=== PATIENT | female | born 1980 | race Caucasian/White ===

== ENCOUNTER 2022-09-07 19:29 | Emergency (ER) | payer MEDICAID ==
[~2022-09-07] VITALS: Ht 157.5 cm; Wt 61.4 kg
[~2022-09-07 19:29] MED LIST: NORCO
[2022-09-07 20:25] LABS: BASOPHILS # (AUTO) 0.1 X10'3 (0-0.2); BASOPHILS % (AUTO) 0.9 % (0-1); EOSINOPHILS # (AUTO) 0.2 X10'3 (0-0.9); EOSINOPHILS % (AUTO) 2.2 % (0-6); HEMATOCRIT 41.5 % (35.0-45.0); HEMOGLOBIN 14.3 g/dl (12.0-16.0); LYMPHOCYTES # (AUTO) 3.1 X10'3 (1.1-4.8); LYMPHOCYTES % (AUTO) 28.4 % (21-51); MEAN CORPUSCULAR HEMOGLOBIN 31.1 PG (27.0-31.0); MEAN CORPUSCULAR HGB CONC 34.4 g/dL (33.0-36.5); MEAN CORPUSCULAR VOLUME 90.3 FL (78-98); MEAN PLATELET VOLUME 6.5 FL (7.4-10.4); MONOCYTES # (AUTO) 0.7 X10'3 (0-0.9); MONOCYTES % (AUTO) 6.4 % (2-12); NEUTROPHILS # (AUTO) 6.8 X10'3 (1.8-7.7); NEUTROPHILS % (AUTO) 62.1 % (42-75); PLATELET COUNT 451 X10'3 (140-440); RED CELL DISTRIBUTION WIDTH 13.3 % (11.5-14.5); WHITE BLOOD COUNT 10.9 X10'3 (4.5-11.0)
[2022-09-07 20:36] LABS: ALANINE AMINOTRANSFERASE 18 U/L (12-78); ALBUMIN 4.2 G/DL (3.4-5.0); ALBUMIN/GLOBULIN RATIO 1.3 (1.1-1.5); ALKALINE PHOSPHATASE 77 IU/L (46-116); ANION GAP 5 (8-16); ASPARTATE AMINO TRANSFERASE 21 U/L (10-37); BILIRUBIN,TOTAL 0.3 MG/DL (0.1-1.0); BLOOD UREA NITROGEN 12 MG/DL (7-18); CALCIUM 9.1 MG/DL (8.5-10.1); CHLORIDE 102 MMOL/L (99-107); CREATININE 0.92 MG/DL (0.40-0.90); GLUCOSE 129 MG/DL (70-104); LIPASE 116 U/L (73-393); POTASSIUM 3.5 MMOL/L (3.5-5.1); SODIUM 140 MMOL/L (135-145); TOTAL CARBON DIOXIDE 33.1 MMOL/L (24-32); TOTAL PROTEIN 7.5 G/DL (6.4-8.2); eGFR 67 ML/MIN
[2022-09-07 20:50] VITALS: BP 106/64
== END 2022-09-08 03:03 | disposition left against medical advice (07) ==
LOC: ER 19:30
DX: K56.609 Unspecified intestinal obstruction, unspecified as to partial versus complete obstruction (principal); Z53.21 Procedure and treatment not carried out due to patient leaving prior to being seen by health care provider
CPT/HCPCS: 36415; 80053; 83690; 85025; 99281

== ENCOUNTER 2022-11-27 17:39 | Emergency (ER) | payer MEDICAID ==
[~2022-11-27] VITALS: Ht 157.5 cm; Wt 65.9 kg
[2022-11-27 18:02] LABS: BASOPHILS % (AUTO) 0.4 % (0-1); EOSINOPHILS # (AUTO) 0.1 X10'3 (0-0.9); EOSINOPHILS % (AUTO) 0.5 % (0-6); HEMATOCRIT 35.1 % (35.0-45.0); HEMOGLOBIN 11.9 g/dl (12.0-16.0); LYMPHOCYTES # (AUTO) 1.2 X10'3 (1.1-4.8); LYMPHOCYTES % (AUTO) 11.1 % (21-51); MEAN CORPUSCULAR HGB CONC 34.1 g/dL (33.0-36.5); MEAN CORPUSCULAR VOLUME 91.1 FL (78-98); MEAN PLATELET VOLUME 6.7 FL (7.4-10.4); MONOCYTES # (AUTO) 0.8 X10'3 (0-0.9); MONOCYTES % (AUTO) 7.7 % (2-12); NEUTROPHILS # (AUTO) 8.6 X10'3 (1.8-7.7); NEUTROPHILS % (AUTO) 80.3 % (42-75); PLATELET COUNT 378 X10'3 (140-440); RED BLOOD COUNT 3.85 X10'6 (4.20-5.60); RED CELL DISTRIBUTION WIDTH 13.3 % (11.5-14.5); WHITE BLOOD COUNT 10.7 X10'3 (4.5-11.0)
[2022-11-27 18:23] LABS: ALANINE AMINOTRANSFERASE 18 U/L (12-78); ALBUMIN 3.8 G/DL (3.4-5.0); ALBUMIN/GLOBULIN RATIO 1.3 (1.1-1.5); ALKALINE PHOSPHATASE 71 IU/L (46-116); ANION GAP 8 (8-16); ASPARTATE AMINO TRANSFERASE 18 U/L (10-37); BILIRUBIN,TOTAL 0.2 MG/DL (0.1-1.0); BLOOD UREA NITROGEN 12 MG/DL (7-18); BUN/CREATININE RATIO 16.2 (10.0-20.0); CALCIUM 8.9 MG/DL (8.5-10.1); CHLORIDE 103 MMOL/L (99-107); CREATININE 0.74 MG/DL (0.40-0.90); GLUCOSE 87 MG/DL (70-104); POTASSIUM 3.4 MMOL/L (3.5-5.1); SODIUM 138 MMOL/L (135-145); TOTAL CARBON DIOXIDE 26.8 MMOL/L (24-32); TOTAL PROTEIN 6.8 G/DL (6.4-8.2); eGFR 86 ML/MIN
[2022-11-27 19:21] VITALS: BP 104/67
== END 2022-11-27 19:22 | disposition home or self-care (01) ==
LOC: ER 17:39
DX: R07.89 Other chest pain (principal); F41.1 Generalized anxiety disorder; Z90.49 Acquired absence of other specified parts of digestive tract; Z72.89 Other problems related to lifestyle
CPT/HCPCS: 36415; 71045; 80053; 83735; 83880; 84484; 85025; 93005; 99285

== ENCOUNTER 2024-03-09 16:36 | Emergency (ER) | payer MEDICAID ==
[~2024-03-09] VITALS: Ht 160 cm; Wt 54.5 kg
[2024-03-09 17:14] LABS: BASOPHILS # (AUTO) 0.1 X10'3 (0-0.2); EOSINOPHILS # (AUTO) 0.1 X10'3 (0-0.9); EOSINOPHILS % (AUTO) 0.7 % (0-6); HEMATOCRIT 42.9 % (35.0-45.0); HEMOGLOBIN 14.3 g/dl (12.0-16.0); LYMPHOCYTES # (AUTO) 1.9 X10'3 (1.1-4.8); LYMPHOCYTES % (AUTO) 19.4 % (21-51); MEAN CORPUSCULAR HEMOGLOBIN 30.4 PG (27.0-31.0); MEAN CORPUSCULAR HGB CONC 33.2 g/dL (33.0-36.5); MEAN CORPUSCULAR VOLUME 91.7 FL (78-98); MEAN PLATELET VOLUME 6.7 FL (7.4-10.4); MONOCYTES # (AUTO) 0.4 X10'3 (0-0.9); MONOCYTES % (AUTO) 3.5 % (2-12); NEUTROPHILS # (AUTO) 7.6 X10'3 (1.8-7.7); NEUTROPHILS % (AUTO) 75.4 % (42-75); PLATELET COUNT 477 X10'3 (140-440); RED BLOOD COUNT 4.68 X10'6 (4.20-5.60); RED CELL DISTRIBUTION WIDTH 13.3 % (11.5-14.5)
[2024-03-09] MEDS: LORazepam 2 mg/ml vial IV ONE (17:24)
[2024-03-09 17:38] LABS: ALANINE AMINOTRANSFERASE 25 U/L (12-78); ALBUMIN 4.3 G/DL (3.4-5.0); ALBUMIN/GLOBULIN RATIO 1.2 (1.1-1.5); ALKALINE PHOSPHATASE 77 IU/L (46-116); ANION GAP 15 (8-16); ASPARTATE AMINO TRANSFERASE 21 U/L (10-37); BILIRUBIN,DIRECT 0.1 MG/DL (0-0.3); BILIRUBIN,TOTAL 0.4 MG/DL (0.1-1.0); BLOOD UREA NITROGEN 10 MG/DL (7-18); BUN/CREATININE RATIO 13.2 (10.0-20.0); CALCIUM 9.3 MG/DL (8.5-10.1); CHLORIDE 112 MMOL/L (99-107); CREATININE 0.76 MG/DL (0.40-0.90); ETHANOL 209 MG/DL (<10); GLUCOSE 108 MG/DL (70-104); POTASSIUM 3.7 MMOL/L (3.5-5.1); SODIUM 149 MMOL/L (135-145); TOTAL PROTEIN 7.8 G/DL (6.4-8.2); eCRCL 79 ML/MIN; eGFR 83 ML/MIN
[2024-03-09] MEDS: ringers solution, lacted 1,000 ML IV ONE (19:18)
[2024-03-09 22:42] LABS: BILIRUBIN,URINE NEGATIVE (Neg); CLARITY,URINE SLIGHTLY CLOUDY (Clear); COLOR,URINE YELLOW (Yellow); GLUCOSE, URINE NEGATIVE (Neg); KETONES,URINE NEGATIVE (Neg); LEUKOCYTE ESTERASE ,URINE NEGATIVE (Neg); NITRITES, URINE NEGATIVE (Neg); OCCULT BLOOD,URINE TRACE-INTACT (Neg); PROTEIN,URINE NEGATIVE (Neg); UROBILINOGEN,URINE 0.2 E.U/dL (0.2-1.0)
[2024-03-09 22:46] LABS: UA COLLECTION TYPE CLN CATCH MIDSTREAM
[2024-03-09 22:48] LABS: BACTERIA,URINE FEW /HPF (Neg); RBC,URINE 0-2 /HPF (0-2); WBC,URINE 0-4 /HPF (0-4)
[2024-03-09 22:49] LABS: MUCUS STRANDS FEW /LPF (Neg); SQUAMOUS EPITHELIAL CELL,UR FEW /LPF (FEW)
[2024-03-09 22:51] LABS: URINE AMPHETAMINE SCREEN POSITIVE (Neg); URINE BARBITUATE SCREEN NEGATIVE (Neg); URINE BENZODIAZEPINES SCREEN NEGATIVE (Neg); URINE CANNABINOID SCREEN NEGATIVE (Neg); URINE COCAINE SCREEN NEGATIVE (Neg); URINE METHADONE SCREEN NEGATIVE (Neg); URINE OPIATE SCREEN NEGATIVE (Neg); URINE PHENCYCLIDINE SCREEN NEGATIVE (Neg)
[2024-03-09] MEDS: ondansetron/PF 4mg/2ml inj IV ONE (23:08)
[2024-03-09] MEDS: morphine 4 MG/ML inj SYRINge IV ONE (23:09)
[2024-03-09 23:39] LABS: URINE HCG NEGATIVE (NEG)
[2024-03-10 00:36] LABS: HCG SERUM QL NEGATIVE
[2024-03-10 05:44] VITALS: BP 128/87; PULSE 73; RESP 18; TEMP 98.1; O2SAT 98
== END 2024-03-10 05:49 | disposition home or self-care (01) ==
LOC: ER 16:37 → EEVIPCON 16:37 → ER 03-10 05:49
DX: R41.82 Altered mental status, unspecified (principal); F10.129 Alcohol abuse with intoxication, unspecified; Y90.9 Presence of alcohol in blood, level not specified
CPT/HCPCS: 36415; 70450; 71045; 74176; 80048; 80076; 80305; 80320; 81001; 81025; 84703; 85025; 96361; 96374; 96375; 99285; J2060; J2270; J2405; J7120; C1758

== ENCOUNTER 2024-04-17 10:54 | Emergency (ER) | payer MEDICAID ==
[~2024-04-17] VITALS: Ht 157.5 cm; Wt 61.4 kg
[2024-04-17 11:05] VITALS: BP 123/77; PULSE 76; RESP 18; TEMP 97.2; O2SAT 100
[2024-04-17 11:45] LABS: BILIRUBIN,URINE NEGATIVE (Neg); CLARITY,URINE CLEAR (Clear); COLOR,URINE YELLOW (Yellow); GLUCOSE, URINE NEGATIVE (Neg); KETONES,URINE NEGATIVE (Neg); LEUKOCYTE ESTERASE ,URINE NEGATIVE (Neg); NITRITES, URINE NEGATIVE (Neg); OCCULT BLOOD,URINE TRACE-INTACT (Neg); PROTEIN,URINE NEGATIVE (Neg); UROBILINOGEN,URINE 0.2 E.U/dL (0.2-1.0)
[2024-04-17 11:58] LABS: UA COLLECTION TYPE CLN CATCH MIDSTREAM
[2024-04-17 11:59] LABS: BACTERIA,URINE NONE SEEN /HPF (Neg); RBC,URINE 20-50 /HPF (0-2); SQUAMOUS EPITHELIAL CELL,UR FEW /LPF (FEW); WBC,URINE 0-4 /HPF (0-4)
== END 2024-04-17 15:11 | disposition left against medical advice (07) ==
LOC: ER 10:55
DX: M79.601 Pain in right arm (principal); Z53.21 Procedure and treatment not carried out due to patient leaving prior to being seen by health care provider
CPT/HCPCS: 81001

== ENCOUNTER 2024-09-09 17:47 | Emergency (ER) | payer MEDICAID ==
[~2024-09-09] VITALS: Ht 154.9 cm; Wt 60.2 kg
[2024-09-09 18:22] VITALS: BP 129/85; PULSE 98; RESP 18; O2SAT 100
[2024-09-09] MEDS ORDERED: CIPR2.5D21 RIGHTEYE (19:18)
[2024-09-09] MEDS ORDERED: DIAZ5TAB22 PO (19:18)
[2024-09-09] MEDS: diazepam 5mg tablet PO ONE (19:50)
[2024-09-09] MEDS: ciprofloxacin 0.3% 2.5ml ophthalmic solution RIGHTEYE ONE (20:03)
[2024-09-09 20:07] VITALS: TEMP 98.5
== END 2024-09-09 20:09 | disposition home or self-care (01) ==
LOC: ER 17:48
DX: S05.01XA Injury of conjunctiva and corneal abrasion without foreign body, right eye, initial encounter (principal); W19.XXXA Unspecified fall, initial encounter; Y93.89 Activity, other specified; Y92.89 Other specified places as the place of occurrence of the external cause; Y99.8 Other external cause status
CPT/HCPCS: 99283; J7042

== ENCOUNTER 2025-04-11 12:05 | Emergency (ER) | payer MEDICAID ==
[~2025-04-11] VITALS: Ht 154.9 cm; Wt 58.2 kg
--- NOTE | 2025-04-11 14:37 | Physician Documentation ---
History of Present Illness ~ Chief Complaint: Allergic Reaction Stated Complaint: ALLERGIC REACTION Time Seen by MD: 13:05 Primary Medical Doctor: FITO EDWARD [facility] This is a 44-year-old female who presents back to the emergency department for rash to bilateral hands after chemical exposure, patient reports that she was seen for the same approximately one-week prior and medicated for symptoms with improvement of symptoms however she reports she was recently re-exposed and the rash returned. Medication Reconciliation Allergies: Coded Allergies: No Known Allergies (Unverified , 04/11/25) Scheduled Clobetasol Propionate (Clobetasol Propionate), 1 APPLIC TOP Q12H Miscellaneous Medications [[place]], (Reported) Past Medical History Past Medical History: No Pertinent History Past Surgical History: noncontributory Alcohol Use: Occasionally Drug Use: none Review of Systems ROS As stated above in the HPI, otherwise all systems are reviewed and negative. Physical Exam Vital Signs: Heart Rate: 98, Respiratory Rate: 18, BP: 134/92, Pulse Oximetry: 98, Weight: 58.200 Oxygen Flow Rate: 0 Physical Exam VITALS: Reviewed and as above. GENERAL: Alert, nontoxic appearing, no apparent distress. RESPIRATORY: No increased work of breathing, no respiratory distress, speaking in full clear sentences SKIN: Diffuse fine papular rash to all surfaces of bilateral hands, mildly erythematous. No bullae, Nikolsky negative Progress Results/Orders Results/Orders Orders - YOUSUF ROSADO Triamcinolone Acet 40mg/Ml Inj (Kenalog- (04/11/25 14:30) Completed Orders - YOUSUF ROSADO Ibuprofen Tablet (Motrin Tablet) (04/11/25 14:30) Diphenhydramine Capsule (Benadryl Capsul (04/11/25 14:30) Famotidine Tablet (Pepcid Tablet) (04/11/25 14:30) Medications Received in ER Medications (Trade) Dose Ordered Sig/Joaquina Route PRN Reason Start Time Stop Time Status Last Admin Dose Admin (Kenalog-40 inj) 40 mg ONCE ONCE IM 04/11/25 14:30 04/11/25 14:31 DC 04/11/25 14:46 40 MG (Motrin tablet) 800 mg ONCE ONCE PO 04/11/25 14:30 04/11/25 14:35 DC 04/11/25 14:45 800 MG (Benadryl capsule) 25 mg ONCE ONCE PO 04/11/25 14:30 04/11/25 14:31 DC 04/11/25 14:45 25 MG (Pepcid tablet) 20 mg ONCE ONCE PO 04/11/25 14:30 04/11/25 14:31 DC 04/11/25 14:45 20 MG Vital Signs 04/11/25 04/11/25 12:12 14:58 Pulse 98 76 Resp 18 16 B/P (MAP) 134/92 120/87 Pulse Ox 98 98 O2 Flow Rate 0 Medical Decision Making Findings 44-year-old female who presents with a diffuse fine papular rash to all aspects of bilateral hands, patient reports rashes associated with chemical exposure. Patient has been previously seen for similar rash after chemical exposure with rash reappearing after repeat chemical exposure recently. Rash appears to be a chemical contact dermatitis treatment with steroids indicated. Rash appears to be non uncomplicated not involve deeper tissue it was reassuring rash is limited to hands at area of chemical exposure. I have considered herpetic ifeoma, syphilis, aviva mountain spotted fever, hand foot and mouth disease, anaphylaxis, dress, [place] symptom come Lyme disease, eczema, psoriasis, scabies tinea, viral exanthem, toxic epidermal necrolysis, and toxic shock syndrome. Patient well-appearing and appropriate for outpatient follow up. Patient advised she must avoid chemical exposure. Patient provided home care instructions, return to care precautions, and follow up instructions which she verbalized understanding of. Differential Dx:Considerations: Include: Anaphylaxis, Angioedema, Bronchospasm, Contact dermatitis, Drug reaction, Hypotension, Latex allergy, Shock, Urticaria Departure Time of Disposition: 14:36 Disposition: 01 HOME / SELF CARE / HOMELESS Impression: Primary Impression: Chemical induced allergic contact dermatitis Condition: Improved Discharge Instructions: Contact Dermatitis Additional Instructions: Please use the prescribed steroid cream. You may use ibuprofen and or Tylenol as needed for pain. Avoid chemical exposure to your skin. Please follow up with your primary care provider in the next few days. Please return to the emergency department for any new or worsening concerning symptoms. Referrals: NO PRIMARY CARE PROVIDER (PCP) Prescriptions Clobetasol Propionate (Clobetasol Propionate) 0.05 % Cream..g. 1 APPLIC TOP Q12H for 14 Days, #30 GM 0 Refills apply to affected area(s) Prov: YOUSUF ROSADO 04/11/25 Education Educated: Patient Educated regarding: diagnosis, treatment, prognosis, need for follow up Signature Scribe Signature: No scribe Attestation: My The note accurately reflects work and decisions made by me.NNEKA [place] 04/11/25 22:01 Parts of this note were created using [employer] voice recognition software program. While efforts were made to correct any mistakes made by this voice recognition software program, nonsensical phrases may remain in this note. In addition, there may be errors and syntax, grammar, content and spelling. YOUSUF ROSADO Apr 11, 2025 14:37
[2025-04-11] MEDS ORDERED: CLOB30CR11 TOP (14:40)
[2025-04-11] MEDS: ibuprofen tablet 400 MG TABLET PO ONE (14:45)
[2025-04-11] MEDS: triamcinolone acetonide 40mg/ml inj IM ONE (14:46)
[2025-04-11 14:58] VITALS: BP 120/87; PULSE 76; RESP 16; O2SAT 98
== END 2025-04-11 14:59 | disposition home or self-care (01) ==
LOC: ER 12:06
DX: L23.5 Allergic contact dermatitis due to other chemical products (principal); Z79.899 Other long term (current) drug therapy; Z72.89 Other problems related to lifestyle
CPT/HCPCS: 96372; 99284; A6223; J3301; Q0163

== ENCOUNTER 2025-04-30 15:05 | Emergency (ER) | payer MEDICAID ==
[~2025-04-30] VITALS: Ht 154.9 cm; Wt 56.8 kg
[~2025-04-30 15:05] MED LIST changes: +CLOB30CR11 TOP
[2025-04-30 15:15] VITALS: TEMP 97.9
--- NOTE | 2025-04-30 15:37 | Physician Documentation ---
History of Present Illness ~ Chief Complaint: Medical Clearance Stated Complaint: MED CLEARANCE Time Seen by MD: 15:19 Primary Medical Doctor: FITO EDWARD [facility] A 44-year-old female with a history of methamphetamine abuse who presents requesting medical clearance to enter a rehab program patient reports feeling otherwise well and reports methamphetamine as only drank of abuse, patient reports last use was several days ago. Patient reports no other acute symptoms or concerns. Tetanus within 5 years?: Yes Medication Reconciliation Allergies: Coded Allergies: No Known Allergies (Unverified , 04/11/25) Scheduled Clobetasol Propionate (Clobetasol Propionate), 1 APPLIC TOP Q12H Miscellaneous Medications [[place]], (Reported) Past Medical History Past Medical History: No Pertinent History Past Surgical History: noncontributory Alcohol Use: Occasionally Drug Use: none Review of Systems ROS As stated above in the HPI, otherwise all systems are reviewed and negative. Physical Exam Vital Signs: Temperature: 97.9, Heart Rate: 89, Respiratory Rate: 18, BP: 120/89, Pulse Oximetry: 98, Weight: 56.820 Oxygen Flow Rate: 0 Physical Exam VITALS: Reviewed and as above. GENERAL: Alert, nontoxic appearing, no apparent distress. HEENT: PERRLA, EOMI RESPIRATORY: No increased work of breathing, no respiratory distress, speaking in full clear sentences, clear lung sounds in all teague CV: Regular rate and rhythm no murmur BACK: Nontender to palpation GI: Soft, nontender, bowel sounds present MUSCULOSKELETAL: No obvious deformities SKIN: Warm and dry NEURO: GCS 15 PSYCH: Normal mood and affect and no statements of HI or SI Progress Results/Orders Results/Orders Vital Signs 04/30/25 04/30/25 15:15 15:43 Temp 97.9 Pulse 89 89 Resp 18 16 B/P (MAP) 120/89 120/89 Pulse Ox 98 98 O2 Flow Rate 0 Medical Decision Making Additional information obtaine: N/A Findings This 44-year-old female with a history of methamphetamine abuse presented requesting medical clearance patient is otherwise well and had benign physical exam, it is reassuring methamphetamine is the only drug abuse and no risk factors for opioid or alcohol withdrawal due to no history of abuse of opioids or alcohol. Patient is medically cleared to enter rehab program/detox/sober living. Patient provided follow up and return to care precautions which she verbalized understanding of. Differential Dx:Considerations: Include: Intoxication-Alcohol, Intoxication- Other drug, Substance abuse disorder, Alcohol withdrawl syndrom Departure Time of Disposition: 15:36 Disposition: 01 HOME / SELF CARE / HOMELESS Impression: Primary Impression: General medical exam Additional Impression: History of methamphetamine abuse Condition: Improved Discharge Instructions: Medical Screening Exam Additional Instructions: You are medically cleared to enter your rehab/detox/sober living program Please follow up with your primary care provider or the [facility] in the next few days. Please return to the emergency department for any new or worsening concerning symptoms. Referrals: NO PRIMARY CARE PROVIDER (PCP) Education Educated: Patient Educated regarding: diagnosis, treatment, prognosis, need for follow up Signature Scribe Signature: No scribe Attestation: The note accurately reflects work and decisions made by me.NNEKA [place] 05/01/25 00:40 Parts of this note were created using [employer] voice recognition software program. While efforts were made to correct any mistakes made by this voice recognition software program, nonsensical phrases may remain in this note. In addition, there may be errors and syntax, grammar, content and spelling. YOUSUF ROSADO Apr 30, 2025 15:37
[2025-04-30 15:43] VITALS: BP 120/89; PULSE 89; RESP 16; O2SAT 98
== END 2025-04-30 15:48 | disposition home or self-care (01) ==
LOC: ER 15:06
DX: Z00.00 Encounter for general adult medical examination without abnormal findings (principal); F15.10 Other stimulant abuse, uncomplicated; Z79.899 Other long term (current) drug therapy; Z72.89 Other problems related to lifestyle
CPT/HCPCS: 99282